=== PATIENT | female | born 1960 | race Caucasian/White ===

== ENCOUNTER 2017-10-07 00:27 | Inpatient (IN) | payer SELFPAY ==
[~2017-10-07] VITALS: Ht 157.5 cm; Wt 86.6 kg
--- NOTE | 2017-10-07 00:30 | NUR ---
PT BIB [facility] TO ER BED 8. PT C/O ABD PAIN X 2 DAYS, STATES SHE HAD 3 EPISODES OF VOMITING TONIGHT. PT PLACED IN A GOWN AND ON THE PROPERTY FIELD INSPECTOR. VSS/RESP EVEN UNLABORED/NAD NOTED/SKIN WARM AND DRY/AOX4. AWAITING MD OCHOA.
--- NOTE | 2017-10-07 00:55 | NUR ---
18G IV TO RAC X 1 ATTEMPT USING ASEPTIC TECH, BLOOD HANDED OVER TO LAB AT THE BEDSIDE. IV FLUSHES EASILY WITH NS.
[2017-10-07] MEDS ORDERED: HYDROMORPHONE INJ 2 MG/ML DISP.SYRIN IV ONE (01:00)
[2017-10-07] MEDS ORDERED: IV NS 0.9% 1,000 ML BAG IV ONE (01:00)
[2017-10-07] MEDS ORDERED: ONDANSETRON HCL/PF 4 MG/2 ML VIAL IVP ONE (01:00)
[2017-10-07] MEDS ORDERED: FAMOTIDINE/PF INJ 20 MG/2 ML VIAL IV ONE ×2 (01:00→01:02)
[2017-10-07] MEDS ORDERED: KETOROLAC TROMETHAMINE INJ 30 MG/ML VIAL IV ONE (01:00)
[2017-10-07] MEDS ORDERED: ONDANSETRON HCL/PF 4 MG/2 ML VIAL ONE ×2 (01:01→02:15)
[2017-10-07] MEDS ORDERED: KETOROLAC TROMETHAMINE 15 MG/ML VIAL ONE (01:01)
--- NOTE | 2017-10-07 01:03 | NUR ---
EMT AT BEDSIDE FOR EKG.
[2017-10-07] MEDS: MORPHINE SULFATE INJ 2 MG/ML DISP.SYRIN IV ONE ×2 (01:04→01:13)
[2017-10-07 01:10] LABS: BASOPHILS # (AUTO) 0.1 /CMM (0.0-0.2); BASOPHILS % (AUTO) 0.8 % (0.0-2.0); EOSINOPHILS # (AUTO) 0.1 /CMM (0.0-0.7); EOSINOPHILS % (AUTO) 0.6 % (0.0-6.0); HEMATOCRIT 40 % (33-45); HEMOGLOBIN 13.2 g/dL (11.5-14.8); LYMPHOCYTES # (AUTO) 2.8 /CMM (0.8-4.8); LYMPHOCYTES % (AUTO) 21.2 % (20.0-44.0); MEAN CORPUSCULAR HEMOGLOBIN 28 PG (26.0-33.0); MEAN CORPUSCULAR HGB CONC 33 g/dl (31.0-36.0); MEAN CORPUSCULAR VOLUME 85 fL (82-100); MONOCYTES # (AUTO) 0.6 /CMM (0.1-1.30); MONOCYTES % (AUTO) 4.5 % (2.0-12.0); NEUTROPHILS # (AUTO) 9.6 /CMM (1.8-8.9); NEUTROPHILS % (AUTO) 72.9 % (43.0-81.0); PLATELET COUNT (AUTO) 355 /CMM (150-450); RDW COEFFICIENT OF VARIATION 14.3 (11.5-15.0); WHITE BLOOD COUNT (AUTO) 13.2 K/uL (4.3-11.0)
[2017-10-07] MEDS ORDERED: MORPHINE SULFATE INJ 4 MG/ML DISP.SYRIN ONE (01:11)
[2017-10-07 01:16] LABS: INR 0.95 (0.87-1.13); PROTHROMBIN TIME 9.9 SECS (9.5-12.7)
[2017-10-07 01:18] LABS: CALCIUM, SERUM 10.2 mg/dL (8.5-10.1); CARBON DIOXIDE 30 mmol/L (21-32); CHLORIDE 99 mmol/L (98-107); CREATININE 0.8 mg/dL (0.6-1.3); GLUCOSE 170 mg/dL (74-106); POTASSIUM 4.4 mmol/L (3.5-5.1); SODIUM SERUM 139 mmol/L (136-145); UREA NITROGEN, BLOOD 13 mg/dL (7-18)
--- NOTE | 2017-10-07 01:18 | NUR ---
PT REFUSING CT SCAN & XRAY UNTIL SHE GETS HER PAIN MEDS FIRST. ER WILL CALL.
[2017-10-07 01:25] LABS: ALANINE AMINOTRANSFERASE 29 U/L (12-78); ALBUMIN 4.5 g/dL (3.4-5.0); ALKALINE PHOSPHATASE 99 U/L (46-116); ASPARTATE AMINOTRANSFERASE 16 U/L (15-37); BILIRUBIN,TOTAL 0.3 mg/dL (0.2-1.0); LIPASE 90 U/L (73-393); TOTAL PROTEIN, SERUM 8.5 g/dL (6.4-8.2)
--- NOTE | 2017-10-07 01:25 | NUR ---
PT TO CT VIA STRETCHER. VSS.
--- NOTE | 2017-10-07 01:36 | NUR ---
PT BACK FROM CT.
--- NOTE | 2017-10-07 01:56 | NUR ---
M/S 306-2
[2017-10-07] MEDS ORDERED: ASPI-605 PO (02:04)
[2017-10-07] MEDS ORDERED: FOLI1TAB16 PO (02:04)
[2017-10-07] MEDS ORDERED: SITA1TAB6 PO (02:04)
[2017-10-07] MEDS ORDERED: CYAN250014 PO (02:04)
[2017-10-07 02:05] LABS: TROPONIN I < 0.017 ng/mL (0.00-0.056)
[2017-10-07] MEDS ORDERED: CHOL20004 PO (02:06)
[2017-10-07] MEDS ORDERED: CARV12.52 PO (02:06)
--- NOTE | 2017-10-07 02:15 | NUR ---
REPORT CALLED TO JUSTINO ON M/S FOR GURMEET.
--- NOTE | 2017-10-07 02:27 | NUR ---
PT TRANSPORTED TO / 306-2 VIA STRETCHER WITH EMT. VSS.
[2017-10-07 02:30] VITALS: BP 130/69
--- NOTE | 2017-10-07 02:30 | NUR ---
RN NOTE: RECEIVED PT FROM ED VIA [facility]. PT IS A/OX4. DAUGHTER AT BEDSIDE. PT DENIES ANY PAIN. NO SOB NOTED. NO S/S OF DISTRESS NOTED AT THIS TIME. NO N/V. CALL LIGHT WITHIN PT'S REACH. BED KEPT IN LOW, LOCKED POSITION, AND SIDE RAILS X 2 UP. IV ON R AC #18G AND IS PATENT AND INTACT. INSTRUCTED PT NOT TO HAVE ANYTHING TO EAT OR DRINK UNTIL DOCTOR ORDERS GET PUT IN. WILL CONTINUE TO MONITOR PT. AWAITING FOR ADMITTING ORDERS.
--- NOTE | 2017-10-07 03:12 | NUR ---
MS RN NOTE: SPOKE TO DR. AGUILLON AND SAID HE WILL PUT IN THE ADMITTING ORDERS SHORTLY. KEEP PT NPO FOR NOW.
--- NOTE | 2017-10-07 04:52 | NUR ---
MS RN NOTE: SPOKE WITH DR. AGUILLON TO REMIND HIM ABOUT ADMITTING ORDERS. HE SAID HE WILL PUT THEM IN.
[2017-10-07] MEDS ORDERED: PIPERACILLIN /TAZOBACTAM 3.375 G in IV D5W 50 ML IV SCH (05:30)
[2017-10-07] MEDS ORDERED: IV D5/0.45 NACL 1,000 ML IV PRN (05:30)
[2017-10-07] MEDS ORDERED: ONDANSETRON HCL/PF 4 MG/2 ML VIAL IVP PRN (05:30)
[2017-10-07] MEDS ORDERED: ACETAMINOPHEN 650 MG/SUPP.RECT RC PRN (05:30)
[2017-10-07] MEDS ORDERED: PIPERACILLIN /TAZOBACTAM 3.375 G VIAL IV ONE (05:35)
[2017-10-07 05:55] LABS: EOSINOPHILS % (AUTO) 0.3 % (0.0-6.0); HEMATOCRIT 35 % (33-45); HEMOGLOBIN 11.9 g/dL (11.5-14.8); LYMPHOCYTES # (AUTO) 2.3 /CMM (0.8-4.8); MEAN CORPUSCULAR HEMOGLOBIN 29 PG (26.0-33.0); MEAN CORPUSCULAR HGB CONC 34 g/dl (31.0-36.0); MEAN CORPUSCULAR VOLUME 85 fL (82-100); MONOCYTES # (AUTO) 0.5 /CMM (0.1-1.30); MONOCYTES % (AUTO) 4.5 % (2.0-12.0); NEUTROPHILS # (AUTO) 8.1 /CMM (1.8-8.9); NEUTROPHILS % (AUTO) 74.2 % (43.0-81.0); PLATELET COUNT (AUTO) 304 /CMM (150-450); RDW COEFFICIENT OF VARIATION 14.4 (11.5-15.0); RED BLOOD CELL COUNT(AUTO) 4.15 MIL/uL (4.0-5.2)
[2017-10-07 06:16] LABS: ALANINE AMINOTRANSFERASE 29 U/L (12-78); ALBUMIN 3.5 g/dL (3.4-5.0); ALKALINE PHOSPHATASE 83 U/L (46-116); ASPARTATE AMINOTRANSFERASE 16 U/L (15-37); BILIRUBIN,TOTAL 0.2 mg/dL (0.2-1.0); CARBON DIOXIDE 25 mmol/L (21-32); CHLORIDE 105 mmol/L (98-107); CREATININE 0.9 mg/dL (0.6-1.3); GLUCOSE 200 mg/dL (74-106); MAGNESIUM 1.4 mg/dL (1.8-2.4); PHOSPHORUS 4.2 mg/dL (2.5-4.9); POTASSIUM 4.6 mmol/L (3.5-5.1); SODIUM SERUM 140 mmol/L (136-145); TOTAL PROTEIN, SERUM 6.9 g/dL (6.4-8.2); UREA NITROGEN, BLOOD 13 mg/dL (7-18)
--- NOTE | 2017-10-07 06:36 | NUR ---
MS RN CLOSING NOTES: ALL NEEDS WERE ATTENDED AND ANTICIPATED FOR. PT IS A/OX4. DAUGHTER AT BEDSIDE. PT REPORTS MILD PAIN. WAS OFFERED PAIN MEDICATION BUT PT SAID SHE IS TOLERATING IT FOR NOW. NO SOB NOTED. NO S/S OF DISTRESS NOTED AT THIS TIME. NO N/V. CALL LIGHT WITHIN PT'S REACH. BED KEPT IN LOW, LOCKED POSITION, AND SIDE RAILS X 2 UP. IV ON R AC #18G AND IS PATENT AND INTACT. PT BEING INFUSED WITH IV D5 1/2 NS AT 80ML/HR. INSTRUCTED PT NOT TO HAVE ANYTHING TO EAT OR DRINK DOCTOR ORDERED. GOT A CALL FROM LAB THAT LACTIC ACID WAS 2.7. WILL ENDORSE TO AM NURSE FOR GURMEET.
--- NOTE | 2017-10-07 07:24 | NUR ---
MS RN OPENING NOTES: PT RECEIVED AWAKE IN BED IN NO ACUTE SIGNS OF DISTRESS WITH DAUGHTER AT BEDSIDE. PT A/O X 4 AND VERBALLY RESPONSIVE, NO C/O PAIN OR DISCOMFORTS VOICED AT THIS TIME. PT IS NPO AT THIS TIME PER MD ORDER. ON ROOM AIR, BREATHING EVEN AND UNLABORED. IV ACCESS ON R AC #18G PATENT AND INTACT WITH IVF OF D5 1/2 NS @ 80ML/HR INFUSING , NO SIGNS OF INFILTRATION NOTED. BED IN LOW/ LOCKED POSITION WITH SIDE RAILS X 2 UP. BEDSIDE TABLE AND CALL LIGHT WITHIN PT'S REACH. WILL CONTINUE TO MONITOR PT ACCORDINGLY.
[2017-10-07 08:00] VITALS: BP 97/55
[2017-10-07] MEDS ORDERED: MORPHINE SULFATE INJ 4 MG/ML DISP.SYRIN IV PRN (08:30)
[2017-10-07] MEDS: FAMOTIDINE/PF INJ 20 MG/2 ML VIAL IV SCH ×2 (09:10→21:56)
[2017-10-07] MEDS: Magnesium 1GM/D5W 100ML PREMIX 100 ML IV SCH ×4 (10:51→14:41)
[2017-10-07] MEDS: PIPERACILLIN /TAZOBACTAM 3.375 G in IV D5W 50 ML IV SCH ×3 (12:39→23:38)
[2017-10-07 16:00] VITALS: BP 106/72
--- NOTE | 2017-10-07 19:10 | NUR ---
MS RN CLOSING NOTES: PT AWAKE AND RESTING IN BED WITH DAUGHTER AT BEDSIDE. PT A/O X 4 AND VERBALLY RESPONSIVE AND SPEAKS PERUVIAN ONLY. ON ROOM AIR, BREATHING EVEN AND UNLABORED. IV ACCESS ON R AC #18G PATENT AND INTACT WITH IVF OF D5 1/2 NS @ 80ML/HR INFUSING WELL , NO SIGNS OF INFILTRATION NOTED. BED IN LOW/ LOCKED POSITION WITH SIDE RAILS X 2 UP. BEDSIDE TABLE AND CALL LIGHT WITHIN PT'S REACH. ALL NEEDS AND CARE ATTENDED WELL. WILL ENDORSED TO PLUGGING MACHINE OPERATOR NURSE FOR GURMEET..
--- NOTE | 2017-10-07 19:30 | NUR ---
MS RN OPENING NOTES RECEIVED PT RESTING IN BED. A & O X 4, GREENLAND[place] SPEAKING. NO C/O N/V OR PAIN NOTED. AMBULATORY, ON CLEAR LIQ DIET, TOLERATING WELL. BRP. NO ACUTE CHANGES NOTED, @ RA. IV ACCESS TO RAC, INTACT PATENT, INFUSING WELL WITH D5 1/2 NS @ 80 ML/HR. DTR WILL STAY WITH HER TONIGHT. BED IN LOW LOCKED POSITION. CALL LIGHT WITHIN REACH. WILL CONTINUE TO OBSERVE CLOSELY FOR ANY CHANGES.
[2017-10-07 20:00] VITALS: BP 137/74
[2017-10-07 20:10] VITALS: BP 137/74
--- NOTE | 2017-10-07 22:52 | NUR ---
PAGED CHECK CASHIER [place]APINCITO PT HAD C/O HEADACHE & REQUESTED FOR PO TYLENOL. PAGED CHECK CASHIER CHAPINCITO & CHECK CASHIER CALLED BACK WITH NEW ORDER TO GIVE PO TYLENOL ORDERED. PT TOLERATING CLEAR LIQ DIET WELL @ THIS TIME. ORDER NOTED & CARRIED OUT. WILL FOLLOW THE ORDER.
[2017-10-07] MEDS ORDERED: ACETAMINOPHEN 325 MG TABLET PO PRN (23:00)
[2017-10-07] MEDS ORDERED: ACETAMINOPHEN 325 MG TABLET ONE (23:27)
--- NOTE | 2017-10-07 23:38 | NUR ---
PRN TYLENOL GIVEN PT C/O HEADACHE, PRN TYLENOL GIVEN. WILL REASSESS FOR EFFECTIVENESS.
--- NOTE | 2017-10-08 00:24 | NUR ---
PT REFUSED MORE DOSES OF ANTIBIOTICS & IV FLIDS DTR TRANSLATED THAT HER MOTHER REFUSES TO GET NEXT DOSE OF IV ANTIBIOTIC @ 0600 & SHE WANTED TO BE DISCONNECTED FROM IV COMPLETELY. SHE STATED, SHE WILL DRINK ENOUGH PO FLUIDS & DOESN'T NEED IVF. RISKS & BENEFITS WERE EXPLAINED BUT PT STILL CONTINUED REFUSING. WILL RECHECK WITH THE PT AGAIN IN AM IF SHE WOULD AGREE TO TAKE IV ATB.
[2017-10-08] MEDS: PIPERACILLIN /TAZOBACTAM 3.375 G in IV D5W 50 ML IV SCH (06:00)
--- NOTE | 2017-10-08 06:16 | NUR ---
REFUSED IV ANTIBIOTIC PATIENT REFUSED SCHEDULED DOSE OF IV ATB @ THIS TIME, STATED WILL THINK ABOUT IT IF SHE WANTS TO TAKE IT OR NOT.
[2017-10-08 06:32] LABS: CALCIUM, SERUM 9.1 mg/dL (8.5-10.1); CREATININE 0.8 mg/dL (0.6-1.3); POTASSIUM 4.1 mmol/L (3.5-5.1)
--- NOTE | 2017-10-08 07:21 | NUR ---
MS RN CLOSING NOTES RECEIVED SLEPT INTERMITTENTLY IN BED. A & O X 4, KINYARWANDA SPEAKING. NO C/O N/V OR PAIN NOTED. AMBULATORY, ON CLEAR LIQ DIET, TOLERATING WELL. BRP. NO ACUTE CHANGES NOTED, @ RA. IV ACCESS TO RAC, INTACT PATENT, REFUSED IVF & IV ANTIBIOTIC. MOST OF THE NIGHT. BED IN LOW LOCKED POSITION. CALL LIGHT WITHIN REACH. WILL ENDORSE TO AM SHIFT.
--- NOTE | 2017-10-08 07:47 | NUR ---
RN OPEN NOTES RECEIVED REPORT FROM FLAME HARDENING MACHINE SETTER NURSE. PATIENT IS IN BED, ALERT AND ORIENTED TO NAME, PLACE AND TIME. DAUGHTER IS AT BEDSIDE. NO SIGNS AND SYMPTOMS OF DISTRESS OR PAIN. BED IN LOW POSITION, LOCKED AND TWO SIDE RAILS ARE UP. CALL LIGHT WITHIN REACH FOR SAFETY. PATIENT REUSED ABX AND FLUID. WILL CONTINUE TO ASSES AND MONITOR PATIENT THOUGH OUT MY SHIFT
[2017-10-08 08:00] VITALS: BP 118/69
--- NOTE | 2017-10-08 08:15 | NUR ---
PATIENT REFUSING ANTIBIOTIC AND FLUID. DR BRIGGS MADE AWARE... PATIENT IS POSSIBLE DC TODAY. ADVANCED DIET TO REGULAR DIET. IF ABLE TO TOLERATE SOLID FOOD, DR BRIGGS WILL DC.
[2017-10-08] MEDS: FAMOTIDINE/PF INJ 20 MG/2 ML VIAL IV SCH (08:45)
--- NOTE | 2017-10-08 11:45 | NUR ---
STOCK RANCH SUPERVISOR NOTES PATIENT DISCHARGE ORDER RECEIVED AND CARRIED OUT. NO SIGNS AND SYMPTOMS OF DISTRESS OR PAIN. PATIENT WAS ABLE TO TOLERATE FOOD WITHOUT ABDOMINAL PAIN, NO N/V, PASSING GAS. DISCHARGE INSTRUCTION EXPLAINED TO PATIENT'S DAUGHTER AND PATIENT'S DAUGHTER VERBALIZED UNDERSTANDING. ALL PERSONAL BELONGING WITH PATIENT AT TIME OF DISCHARGE. PATIENT SIGNED BOTH DISCHARGE INSTRUCTIONS AND BELONGING LIST; PLACED IN THE CHART. SKIN IS INTACT UPON DISCHARGE. IV SITE REMOVED. ID BAND REMOVED. PATIENT WENT HOME WITH UBER AND DAUGHTER.
== END 2017-10-08 11:28 | disposition home or self-care (01) | DRG 390 ==
LOC: ER 00:31 → MED 02:15
PROVIDERS: ADMIT Internal Medicine; ATTEND Internal Medicine
DX: K56.609 Unspecified intestinal obstruction, unspecified as to partial versus complete obstruction (principal); E11.9 Type 2 diabetes mellitus without complications; I10 Essential (primary) hypertension; Z68.34 Body mass index [BMI] 34.0-34.9, adult; Z85.3 Personal history of malignant neoplasm of breast; Z85.43 Personal history of malignant neoplasm of ovary; Z85.42 Personal history of malignant neoplasm of other parts of uterus; Z79.899 Other long term (current) drug therapy; Z79.82 Long term (current) use of aspirin; E66.9 Obesity, unspecified; Z85.05 Personal history of malignant neoplasm of liver; Z98.890 Other specified postprocedural states
CPT/HCPCS: 36415; 71010-TC; 80048-TC; 80053-TC; 80076-TC; 82962-TC; 83605-TC; 83690-TC; 83735-TC; 84100-TC; 84484-TC; 85025-TC; 85730-TC; 87081-TC; A4606; J1885; J2270; J2405; J2543; J3475; J3490; J7030; J7060; Z7610